=== PATIENT | male | born 1955 | race Hispanic/Latino ===

== ENCOUNTER 2016-07-25 04:04 | Emergency (ER) | payer OTHER ==
[~2016-07-25] VITALS: Ht 175.3 cm; Wt 88.0 kg
[~2016-07-25 04:04] MED LIST: AMOXIL500 MG PO; AUGMENTIN 875 M1 TAB PO; BACTRIM DS 8001 TAB PO; DOXAZOSIN MESYLA1 MG PO; FLEXERIL10 MG PO; LANTUS INS100 UNITS/ SC; NAPROXEN250 MG PO; NEURONTIN300 MG PO; PRINIVIL 5MG5 MG PO; RELION NOVOLIN10 ML SC; ZANTAC 150MG150 MG PO
--- NOTE | 2016-07-25 05:37 | ED INFLUENZA/URI COMPLAINT ---
See Addendum History of Present Illness General Chief Complaint: General Adult Stated Complaint: SHAKY AND CHILLS X 1 HOUR Source: patient Exam Limitations: no limitations Vital Signs & Intake/Output Vital Signs & Intake/Output Vital Signs Date Time Temp Pulse Resp B/P B/P Pulse O2 O2 Flow FiO2 Mean Ox Delivery Rate 07/25 0613 100.1 89 18 134/78 97 Room Air 07/25 0556 95 Room Air 07/25 0430 100.3 99 18 159/99 95 Room Air Allergies Coded Allergies: NO KNOWN ALLERGIES (12/08/14) Reconcile Medications Amoxicillin (Amoxil) 500 MG CAP 1 TAB PO TID WOUND INFECTION AMOXICILLIN/POTASSIUM CLAV (Augmentin 875-125 Tablet) 875 MG/125 MG TAB 1 TAB PO BID SINUSITIS CYCLOBENZAPRINE HCL (Flexeril) 10 MG TAB 1 TAB PO BID MUSCLE SPASM Avoid operating motor vehicle or heavy machinery Doxazosin Mesylate 1 MG TAB 1 TAB PO DAILY BP (Reported) Gabapentin (Neurontin) 300 MG CAP 1 CAP PO TID Neuropathic pain INSULIN NPH HUM/REG INSULIN HM (Relion Novolin 70-30 Vial) 10 ML MARGARITO 10 U SC BID DIABETES (Reported) Insulin-Lantus (Lantus Insulin) 100 UNITS/ML MADDY 15 U SC DAILY DIABETES ( Reported) Insulin-Lantus (Lantus Insulin) 100 UNITS/ML MADDY 10 U SC AT BEDTIME DIABETIES (Reported) Lisinopril (Prinivil) 5 MG TAB 1 TAB PO DAILY BP (Reported) Naproxen 250 MG TAB 1 TAB PO BID PAIN MODERATE TO SEVERE Ranitidine (Zantac) 150 MG TAB 1 TAB PO DAILY GI (Reported) Sulfamethoxazole/Trimethopri (Bactrim Ds 800 MG-160 MG) 1 TAB TAB 1 TAB PO BID WOUND INFECTION Triage Nurses Notes Reviewed? yes HPI: Patient presents for evaluation of shaking chills that began abruptly about 1-1/ 2 hours ago. Patient states he has had diffuse muscle aches, nonproductive cough, headache and feeling hot on the inside and cold on the outside. He also states he is having significant shortness of breath. He denies ill contacts, recent travel, vomiting, diarrhea, dysuria or rashes. He states he had one prior episode similar to this many years ago in [place]. Symptoms are moderate to severe, more or less constant. Nothing seems to make him feel better. Past History Travel History Traveled to [place] past 21 day No Medical History Any Pertinent Medical History? see below for history Neurological: NONE EENT: NONE Cardiovascular: hypertension Respiratory: NONE Gastrointestinal: GERD Hepatic: NONE Renal: NONE Musculoskeletal: NONE Psychiatric: NONE Endocrine: diabetes Surgical History Surgical History: appendectomy Psychosocial History What is your primary language Chinese Family History Family History, If Any: FATHER FH: HTN (hypertension) MOTHER FH: CAD (coronary artery disease) FH: HTN (hypertension) Hx Contributory? No Review of Systems Review of Systems Constitutional: Reports: chills. EENTM: Reports: no symptoms. Respiratory: Reports: no symptoms. Cardiovascular: Reports: no symptoms. GI: Reports: no symptoms. Genitourinary: Reports: no symptoms. Musculoskeletal: Reports: see HPI. Skin: Reports: no symptoms. Neurological/Psychological: Reports: no symptoms. Hematologic/Endocrine: Reports: no symptoms. Immunologic/Allergic: Reports: no symptoms. All Other Systems: Reviewed and Negative Physical Exam Physical Exam Ears, Nose, Throat: SEE BELOW Comments: Gen.: Well-nourished, well-developed, no acute respiratory distress. Head: Normocephalic, atraumatic. Eyes: Normal inspection bilaterally Ears: Normal inspection bilaterally Nose: Normal inspection Throat/mouth : Moist mucosa Neck: Supple, full range of motion, no goiter Heart: Regular rate and rhythm, no murmurs rubs or gallops Lungs: Clear to auscultation bilaterally with normal air entry Chest: Nontender Back: Normal range of motion Abdomen: Soft, diffuse tenderness without rebound or guarding, nondistended, normal bowel sounds Extremities: Normal range of motion grossly, equal radial pulses, no cyanosis clubbing or edema, calves nontender Neurologic: Cranial nerves grossly intact, speech is clear Skin: warm and dry, no rashes Psychiatric: Calm, cooperative, no apparent delusions or hallucinations Core Measures Severe Sepsis Present: No Septic Shock Present: No Progress Differential Diagnosis: influenza, pneumonia, viral syndrome Plan of Care: Orders Procedure Date/time Status XRY-CHEST XRAY, PA AND LATERAL 07/25 533 Active URINALYSIS 07/25 533 Complete COMPREHENSIVE METABOLIC PANEL 07/25 533 Complete CBC WITHOUT DIFFERENTIAL 07/25 533 Complete RAPID VIRAL INFLUENZA A 07/25 0455 Complete Laboratory Tests 07/25/16 0553: Urine Color YEL, Urine Clarity CLEAR, Urine pH 6.0, Ur Specific [place] 1.025, Urine Protein TRACE H, Urine Ketones NEG, Urine Nitrite NEG, Urine Bilirubin NEG, Urine Urobilinogen 0.2, Ur Leukocyte Esterase NEG, Ur Microscopic SEDIMENT EXAMINED, Urine RBC 1-3, Ur Epithelial Cells RARE, Urine Bacteria FEW H, Urine Hemoglobin TRACE-INTACT H, Urine Glucose NEG 07/25/16 0520: Anion Gap 12, Estimated GFR 52 L, BUN/Creatinine Ratio 16.4, Glucose 104 H, Calcium 8.7, Total Bilirubin 1.0, AST 60 H, ALT 65, Alkaline Phosphatase 97, Total Protein 6.9, Albumin 3.7, Globulin 3.2, Albumin/Globulin Ratio 1.2, CBC w Diff NO MAN DIFF REQ, RBC 4.49 L, MCV 93.9, MCH 31.6 H, RDW 12.8, MPV 10.6 H, Gran % 74.4, Lymphocytes % 17.7 L, Monocytes % 5.8, Eosinophils % 1.7, Basophils % 0.4, Absolute Granulocytes 6.1, Absolute Lymphocytes 1.5, Absolute Monocytes 0.5, Absolute Eosinophils 0.1, Absolute Basophils 0, PUBS MCHC 33.6 Microbiology 07/25 0455 NASOPHARYN: Influenza Virus A & B Rapid Smear - COMP Initial ED EKG: none Comments: 07/25/2016 6:21:31 AM Ismael is feeling better and appears more comfortable. Departure Departure Disposition: HOME OR SELF CARE Condition: Stable Clinical Impression Primary Impression: Viral syndrome Referrals: NEHEMIAH RICHMOND MD (PCP/Family) Additional Instructions: Voltaren as needed for headache muscle aches or chills. Drink lots of fluids. Follow-up with your primary care doctor this week for reevaluation. Return if any concerns or sudden worsening. Thank you for choosing the [facility] Emergency Department for your care. It was a pleasure to serve you today. Jamshid Lauren M.D. [facility] Departure Forms: Customer Survey General Discharge Information Prescriptions: Current Visit Scripts Diclofenac Potassium 1 TAB PO TID PRN PAIN #30 TAB
[2016-07-25 05:44] LABS: ABSOLUTE BASOPHIL COUNT 0 /CUMM (0.0-0.2); ABSOLUTE EOSINOPHIL COUNT 0.1 /CUMM (0.0-0.7); ABSOLUTE GRANULOCYTE CT 6.1 /CUMM (1.4-6.5); ABSOLUTE LYMPH COUNT 1.5 /CUMM (1.2-3.4); ABSOLUTE MONOCYTE COUNT 0.5 /CUMM (0.10-0.60); BASOPHIL % 0.4 % (0.0-2.0); EOSINOPHIL % 1.7 % (0-5); GRANULOCYTE % 74.4 % (42.2-75.2); HEMATOCRIT 42.2 % (42-52); MEAN CORPUSCULAR HGB 31.6 PG (27.0-31.0); MEAN CORPUSCULAR HGB CONC 33.6 G/DL (33.0-37.0); MEAN CORPUSCULAR VOLUME 93.9 FL (80.0-94.0); MEAN PLATELET VOLUME 10.6 FL (7.4-10.4); PLATELET COUNT 148 /CUMM (130-400); RBC DISTRIBUTION WIDTH 12.8 % (11.5-14.5); RED BLOOD CELL CT 4.49 /CUMM (4.70-6.10); WHITE BLOOD CELL COUNT 8.2 /CUMM (4.8-10.8)
[2016-07-25 06:13] VITALS: BP 134/78
[2016-07-25] MEDS ORDERED: DICLOFENAC POTA50 M1 PO ×2 (06:23→06:49)
--- NOTE | 2016-07-25 06:33 | RADIOLOGY REPORT ---
EXAMINATION: XR CHEST CLINICAL INFORMATION: Chills. Dyspnea. Pain. COMPARISON: Chest radiograph 06/28/2015. TECHNIQUE: 2 views of the chest were obtained. FINDINGS: There are ill-defined opacities within the right lung. The left lung is well expanded. There is no pleural effusion or pneumothorax. The cardiac silhouette and upper media cells contours are normal. No acute osseous finding. IMPRESSION: There are ill-defined opacities within the right lung consistent with pneumonia.
[2016-07-25] MEDS ORDERED: ZITHROMAX250 M2 PO ×2 (06:36→06:49)
== END 2016-07-25 06:55 ==
LOC: ERH
PROVIDERS: Emergency Medicine
DX: B34.9 Viral infection, unspecified (principal)
CPT/HCPCS: 81001; 87804; 87804-59; 96361; 96374; J1885

== ENCOUNTER 2017-04-25 05:59 | Emergency (ER) | payer OTHER ==
[~2017-04-25] VITALS: Ht 175.3 cm; Wt 87.1 kg
[~2017-04-25 05:59] MED LIST changes: +DICLOFENAC POTA50 M1 PO; +ZITHROMAX250 M2 PO
--- NOTE | 2017-04-25 06:22 | ED INFLUENZA/URI COMPLAINT ---
History of Present Illness General Chief Complaint: Upper Respiratory Sx/Fever Stated Complaint: ? FLU COUGH,HERRERA,BODY ACHE PER PT Source: patient Exam Limitations: no limitations Vital Signs & Intake/Output Vital Signs & Intake/Output Vital Signs Date Time Temp Pulse Resp B/P B/P Pulse O2 O2 Flow FiO2 Mean Ox Delivery Rate 04/25 0700 97.0 75 20 149/94 97 Room Air Allergies Coded Allergies: NO KNOWN ALLERGIES (12/08/14) Triage Nurses Notes Reviewed? yes HPI: PATIENT REPORT SINCE SATURDAY HE HAS BEEN HAVING MYALGIAS, CHILLS, COUGH WITH WHITISH SPUTUM PRODUCTION. HIS SYMPTOMS HAVE INCREASED IN SEVERITY. HE REPORTS HE WORKS AT AN [employer] AND ALL HIS CO-WORKERS ARE SICK. HE HAS ALSO BEEN NAUSEATED AND VOMITED ONCE CLEAR LIQUID. HE USED TO SMOKE BUT QUIT > 5 YRS AGO. HE DENIES SOB, PALPITAIONS, CP, HISTORY OF LUNG DISEASE, URINARY OR BOWEL SYMPTOMS. (Bety RHODES,Denita) Reconcile Medications Amoxicillin (Amoxil) 500 MG CAP 1 TAB PO TID WOUND INFECTION AMOXICILLIN/POTASSIUM CLAV (Augmentin 875-125 Tablet) 875 MG/125 MG TAB 1 TAB PO BID SINUSITIS Azithromycin (Zithromax) 250 MG TABLET 1 DP PO AD COPD/BRONCHITIS 2 the first day followed by 1 for days 2-5 CYCLOBENZAPRINE HCL (Flexeril) 10 MG TAB 1 TAB PO BID MUSCLE SPASM Avoid operating motor vehicle or heavy machinery Diclofenac Potassium 50 MG TABLET 1 TAB PO TID PRN PAIN,fever Doxazosin Mesylate 1 MG TAB 1 TAB PO DAILY BP (Reported) Gabapentin (Neurontin) 300 MG CAP 1 CAP PO TID Neuropathic pain INSULIN NPH HUM/REG INSULIN HM (Relion Novolin 70-30 Vial) 10 ML MARGARITO 10 U SC BID DIABETES (Reported) Insulin-Lantus (Lantus Insulin) 100 UNITS/ML MADDY 15 U SC DAILY DIABETES ( Reported) Insulin-Lantus (Lantus Insulin) 100 UNITS/ML MADDY 10 U SC AT BEDTIME DIABETIES (Reported) Lisinopril (Prinivil) 5 MG TAB 1 TAB PO DAILY BP (Reported) Naproxen 250 MG TAB 1 TAB PO BID PAIN MODERATE TO SEVERE Oseltamivir Phosphate (Tamiflu) 75 MG CAPSULE 1 CAP PO BID INFLUENZA Ranitidine (Zantac) 150 MG TAB 1 TAB PO DAILY GI (Reported) Sulfamethoxazole/Trimethopri (Bactrim Ds 800 MG-160 MG) 1 TAB TAB 1 TAB PO BID WOUND INFECTION (Linda RHODES,Luc) Past History Travel History Traveled to [place] past 21 day No Medical History Any Pertinent Medical History? none Neurological: NONE EENT: NONE Cardiovascular: hypertension Respiratory: NONE Gastrointestinal: GERD Hepatic: NONE Renal: NONE Musculoskeletal: NONE Psychiatric: NONE Endocrine: diabetes Surgical History Surgical History: appendectomy Psychosocial History What is your primary language [place] Family History Family History, If Any: FATHER FH: HTN (hypertension) MOTHER FH: CAD (coronary artery disease) FH: HTN (hypertension) Hx Contributory? No (Hattie Albert MD) Review of Systems Review of Systems Constitutional: Reports: see HPI. (Hattie Albert MD) Physical Exam Physical Exam General Appearance: well developed/nourished, no apparent distress, alert, awake Head: atraumatic, normal appearance Eyes: Bilateral: normal appearance, PERRL, EOMI. Ears, Nose, Throat: normal ENT inspection Neck: SUPRACLAVILAR TENDERNESS WITHOUT LYMPHADENOPATHY Respiratory: normal breath sounds, lungs clear Cardiovascular: 2/6 SYSTOLIC MURMUR Gastrointestinal: normal bowel sounds, soft, non-tender Extremities: normal inspection, no edema Core Measures Sepsis Present: No Sepsis Focused Exam Completed? No (Hattie Albert MD) Progress Differential Diagnosis: influenza, pneumonia, pharyngitis, sinusitis Initial ED EKG: none (Hattie Albert MD) Plan of Care: Orders Procedure Date/time Status RAPID VIRAL INFLUENZA A 04/25 0611 Complete VIRAL CULTURE 04/25 06 Active Laboratory Tests 04/25/17 0611: Virus Culture Pending Microbiology 04/25 07 NASOPHARYN: Influenza Virus A & B Rapid Smear - COMP INFLUENZA TYPE B Hand-Off Endorsed To: Jamshid Lauren MD Endorsed Time: 712 Pending: other (FLU SWAB) (Jaye Sprague MD) Departure Departure Disposition: HOME OR SELF CARE Condition: Stable Clinical Impression Primary Impression: Influenza (Hattie Albert MD) Resident Co-Sign Statement Statement: ED Attending supervision documentation- [X] I saw and evaluated the patient. I have also reviewed all the pertinent lab results and diagnostic results. I agree with the findings and the plan of care as documented in the Resident's documentation. [X] I have reviewed the ED Record and agree with the Resident's documentation. [] Additions or exceptions (if any) to the Resident's note and plan are summarized below: [] (Celestine RHODES,Jaye) Departure Time of Disposition: 075 Additional Instructions: FOLLOW UP WITH YOUR PCP UPON DISCHARGE come back for worsening symptoms Departure Forms: Customer Survey General Discharge Information RELEASE- WORK Prescriptions: Current Visit Scripts Oseltamivir Phosphate (Tamiflu) 1 CAP PO BID #10 CAP (Linda RHODES,Luc)
[2017-04-25 07:00] VITALS: BP 149/94
--- NOTE | 2017-04-25 07:46 | Patient Discharge Instructions ---
Discharge Instructions General Discharge Information You were seen/treated for: Influenza Special Instructions: Please follow up with your primary care physician within 1-2 weeks of discharge. Take Tamiflu 75mg by mouth twice a day for five days. Come back to the ER for worsening symptoms Acute Coronary Syndrome Inclusion Criteria At DC or during hospital stay patient has or had the following: ACS DIAGNOSIS No Discharge Core Measures Meds if any: Prescribed or Continued at Discharge Meds if any: NOT Prescribed or Continued at Discharge Congestive Heart Failure Inclusion Criteria At DC or during hospital stay patient has or had the following: CHF DIAGNOSIS No Discharge Core Measures Meds if any: Prescribed or Continued at Discharge Meds if any: NOT Prescribed or Continued at Discharge Cerebrovascular accident Inclusion Criteria At DC or during hospital stay patient has or had the following: CVA/TIA Diagnosis No Discharge Core Measures Meds if any: Prescribed or Continued at Discharge Meds if any: NOT Prescribed or Continued at Discharge Venous thromboembolism Inclusion Criteria VTE Diagnosis No VTE Type NONE VTE Confirmed by (Test) NONE Discharge Core Measures - Per Current guidelines, there needs to be overlap - treatment for the first 5 days of Warfarin therapy. - If discharged on Warfarin prior to 5 days of - overlap therapy, the patient will need to be - assessed for post discharge needs including - *Post discharge parental anticoagulation - *Warfarin and/or parental anticoagulation education - *Follow up date to check INR post discharge At least 5 days overlap therapy as Inpatient No Meds if any: Prescribed or Continued at Discharge Note: Overlap Therapy is Warfarin and Anticoagulant Meds if any: NOT Prescribed or Continued at Discharge
[2017-04-25] MEDS ORDERED: TAMIFLU75 M1 PO (07:50)
== END 2017-04-25 08:03 ==
LOC: ERH 05:59
DX: J11.1 Influenza due to unidentified influenza virus with other respiratory manifestations (principal)
CPT/HCPCS: 87804; 87804-59

== ENCOUNTER 2017-12-23 18:08 | Emergency (ER) | payer SELFPAY ==
[~2017-12-23 18:08] MED LIST changes: +TAMIFLU75 M1 PO
[2017-12-23 20:15] LABS: ABSOLUTE BASOPHIL COUNT 0 /CUMM (0.0-0.2); ABSOLUTE EOSINOPHIL COUNT 0.1 /CUMM (0.0-0.7); ABSOLUTE GRANULOCYTE CT 6.1 /CUMM (1.4-6.5); ABSOLUTE MONOCYTE COUNT 1.1 /CUMM (0.10-0.60); BASOPHIL % 0.5 % (0.0-2.0); GRANULOCYTE % 65.3 % (42.2-75.2); HEMATOCRIT 41.4 % (42-52); MEAN CORPUSCULAR HGB 31.9 PG (27.0-31.0); MEAN CORPUSCULAR HGB CONC 33.3 G/DL (33.0-37.0); MEAN CORPUSCULAR VOLUME 95.5 FL (80.0-94.0); MEAN PLATELET VOLUME 10.3 FL (7.4-10.4); PLATELET COUNT 178 /CUMM (130-400); RBC DISTRIBUTION WIDTH 12.7 % (11.5-14.5); RED BLOOD CELL CT 4.33 /CUMM (4.70-6.10); WHITE BLOOD CELL COUNT 9.3 /CUMM (4.8-10.8)
--- NOTE | 2017-12-23 22:41 | ED GENERAL ADULT ---
History of Present Illness General Chief Complaint: General Adult Stated Complaint: MULTIPLE COMPLAINTS Source: patient, family, old records Exam Limitations: no limitations Vital Signs & Intake/Output Vital Signs & Intake/Output Vital Signs Date Time Temp Pulse Resp B/P B/P Pulse O2 O2 Flow FiO2 Mean Ox Delivery Rate 12/24 0216 98.2 77 20 145/87 98 Room Air 12/24 0108 98.8 75 20 156/82 96 Room Air 12/23 2259 98.7 94 20 176/100 97 Room Air 12/23 1827 99.0 86 20 191/119 96 ED Intake and Output 12/24 0000 12/23 1200 Intake Total 3000 Output Total Balance 3000 Intake, IV 3000 Patient 195 lb Weight Allergies Coded Allergies: NO KNOWN ALLERGIES (12/08/14) Reconcile Medications Amoxicillin (Amoxil) 500 MG CAP 1 TAB PO TID WOUND INFECTION AMOXICILLIN/POTASSIUM CLAV (Augmentin 875-125 Tablet) 875 MG/125 MG TAB 1 TAB PO BID SINUSITIS Azithromycin (Zithromax) 250 MG TABLET 1 DP PO AD COPD/BRONCHITIS 2 the first day followed by 1 for days 2-5 Ciprofloxacin HCl (Cipro) 250 MG TABLET 1 TAB PO BID URINE INFECTION CYCLOBENZAPRINE HCL (Flexeril) 10 MG TAB 1 TAB PO BID MUSCLE SPASM Avoid operating motor vehicle or heavy machinery Diclofenac Potassium 50 MG TABLET 1 TAB PO TID PRN PAIN,fever Doxazosin Mesylate 1 MG TAB 1 TAB PO DAILY BP (Reported) Gabapentin (Neurontin) 300 MG CAP 1 CAP PO TID Neuropathic pain INSULIN NPH HUM/REG INSULIN HM (Relion Novolin 70-30 Vial) 10 ML MARGARITO 10 U SC BID DIABETES (Reported) Insulin-Lantus (Lantus Insulin) 100 UNITS/ML MADDY 15 U SC DAILY DIABETES ( Reported) Insulin-Lantus (Lantus Insulin) 100 UNITS/ML MADDY 10 U SC AT BEDTIME DIABETIES (Reported) Lisinopril (Prinivil) 5 MG TAB 1 TAB PO DAILY BP (Reported) Naproxen 250 MG TAB 1 TAB PO BID PAIN MODERATE TO SEVERE Oseltamivir Phosphate (Tamiflu) 75 MG CAPSULE 1 CAP PO BID INFLUENZA Ranitidine (Zantac) 150 MG TAB 1 TAB PO DAILY GI (Reported) Sulfamethoxazole/Trimethopri (Bactrim Ds 800 MG-160 MG) 1 TAB TAB 1 TAB PO BID WOUND INFECTION Triage Note: PER PT NOT FEELING WELL X 1 WEEK, BACK PAIN URINE DARK DID NOT SEE PMD BUT HAD A FEVER THE OTHER DAY Triage Nurses Notes Reviewed? yes HPI: Patient presents to the emergency department with intermittent fevers, chills, myalgias, frequent urination and dysuria. The symptoms started last week but then got better over the weekend but then this morning they came back again. Patient did not take his fever at home. There is no nausea or vomiting. Patient is a diabetic cookies been continuing to take his medications. Patient denies any chest pain or palpitations. There is no shortness of breath. There is no coughing. There is no headache. There is no neck pain. There is no blurry vision. Past History Travel History Traveled to [place] past 21 day No Medical History Any Pertinent Medical History? 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 No Review of Systems Review of Systems Constitutional: Reports: see HPI, chills, fever. EENTM: Reports: no symptoms. Respiratory: Reports: no symptoms. Cardiovascular: Reports: no symptoms. GI: Reports: no symptoms. Genitourinary: Reports: see HPI, dysuria, frequency. Musculoskeletal: Reports: see HPI. Skin: Reports: no symptoms. Neurological/Psychological: Reports: no symptoms. Hematologic/Endocrine: Reports: no symptoms. Immunologic/Allergic: Reports: no symptoms. All Other Systems: Reviewed and Negative Physical Exam Physical Exam General Appearance: well developed/nourished, alert, awake, anxious Head: atraumatic, normal appearance Eyes: Bilateral: PERRL, EOMI. Ears, Nose, Throat: hearing grossly normal, dRY MUCOUS MEMBRANES Neck: normal inspection, supple, full range of motion Respiratory: normal breath sounds, chest non-tender, no respiratory distress, lungs clear Cardiovascular: regular rate/rhythm, normal peripheral pulses Gastrointestinal: normal bowel sounds, soft, non-tender, no organomegaly Back: normal inspection, normal range of motion, NO cva TENDERNESS Extremities: normal inspection, normal capillary refill, normal range of motion, no edema Neurologic/Psych: no motor/sensory deficits, awake, alert, oriented x 3, normal gait, normal mood/affect Skin: intact, normal color, warm/dry Lymphatic: no anterior cervical mily Core Measures ACS in differential dx? No CVA/TIA Diagnosis: No Sepsis Present: No Sepsis Focused Exam Completed? No Progress Differential Diagnoses I considered the following diagnoses in my evaluation of the patient: [UTI, sepsis, electrolyte abnormality, DKA, hyperglycemia] Plan of Care: Orders Procedure Date/time Status Add-on Test (ER Only) 12/23 2240 Active CULTURE,URINE 12/23 1825 Active URINALYSIS 12/23 1825 Complete LACTIC ACID 12/23 1825 Complete COMPREHENSIVE METABOLIC PANEL 12/23 1825 Complete CBC WITHOUT DIFFERENTIAL 12/23 1825 Complete Laboratory Tests 12/23/172125: Lactic Acid Cancelled 12/23/17 1924: Anion Gap 11, Estimated GFR 39 L, BUN/Creatinine Ratio 16.1, Glucose 519 *H, Lactic Acid 1.7, Calcium 9.1, Total Bilirubin 1.2, AST 91 H, ALT 62, Alkaline Phosphatase 203 H, Total Protein 7.0, Albumin 3.6, Globulin 3.4, Albumin/ Globulin Ratio 1.1, CBC w Diff NO MAN DIFF REQ, RBC 4.33 L, MCV 95.5 H, MCH 31.9 H, MCHC 33.3, RDW 12.7, MPV 10.3, Gran % 65.3, Lymphocytes % 21.7, Monocytes % 11.5 H, Eosinophils % 1.0, Basophils % 0.5, Absolute Granulocytes 6.1, Absolute Lymphocytes 2.0, Absolute Monocytes 1.1 H, Absolute Eosinophils 0.1, Absolute Basophils 0 12/23/17 1833: Urine Color YEL, Urine Clarity HAZY H, Urine pH 6.5, Ur Specific [place] 1.010, Urine Protein NEG, Urine Ketones NEG, Urine Nitrite NEG, Urine Bilirubin NEG, Urine Urobilinogen 4.0 H, Ur Leukocyte Esterase SMALL H, Ur Microscopic SEDIMENT EXAMINED, Urine RBC 50-75 H, Urine WBC > 75 H, Ur Epithelial Cells TRANS H, Urine Hemoglobin LARGE H, Urine Glucose >=1000 H Microbiology 12/23 1826 URINE ROUT: Urine Culture - RECD Initial ED EKG: none Departure Departure Disposition: HOME OR SELF CARE Condition: Stable Clinical Impression Primary Impression: UTI (urinary tract infection) Secondary Impressions: Hyperglycemia Referrals: Eriberto Hoang MD (PCP/Family) Additional Instructions: Drink plenty of fluids. Take antibiotics as prescribed. Return if symptoms worsen or for any concerns. Departure Forms: Customer Survey General Discharge Information Prescriptions: Current Visit Scripts Ciprofloxacin HCl (Cipro) 1 TAB PO BID #14 TAB Critical Care Note Critical Care Note Critical Care Time: non-applicable Prescriptions: Current Visit Scripts Ciprofloxacin HCl (Cipro) 1 TAB PO BID #14 TAB
[2017-12-24] MEDS ORDERED: CIPRO250 M1 PO (00:28)
[2017-12-24 02:16] VITALS: BP 145/87
== END 2017-12-24 02:16 ==
LOC: ERH 18:08
PROVIDERS: Physician Assistant Medical
DX: N39.0 Urinary tract infection, site not specified (principal); E11.65 Type 2 diabetes mellitus with hyperglycemia; I10 Essential (primary) hypertension; R01.1 Cardiac murmur, unspecified; K21.9 Gastro-esophageal reflux disease without esophagitis; Z79.84 Long term (current) use of oral hypoglycemic drugs; Z87.891 Personal history of nicotine dependence
CPT/HCPCS: 81001; 87086; 96361; 96372; 96374; J0696

== ENCOUNTER 2017-12-27 21:17 | Inpatient (IN) | payer OTHER ==
[~2017-12-27] VITALS: Ht 175.3 cm; Wt 83.1 kg
[~2017-12-27 21:17] MED LIST changes: +CIPRO250 M1 PO; +DOXAZOSIN MESYLA1 M1; -DOXAZOSIN MESYLA1 MG PO; -PRINIVIL 5MG5 MG PO; +PRINIVIL5 M1; +RELION NOV100 UNIT/1; -RELION NOVOLIN10 ML SC
--- NOTE | 2017-12-27 21:31 | ED GENERAL ADULT ---
History of Present Illness General Chief Complaint: General Adult Stated Complaint: SEEN LAST SATURDAY, FEVER, BODY ACHES PER PT Source: patient Exam Limitations: no limitations Vital Signs & Intake/Output Vital Signs & Intake/Output Vital Signs Date Time Temp Pulse Resp B/P B/P Pulse O2 O2 Flow FiO2 Mean Ox Delivery Rate 12/27 2140 Room Air 12/28 2123 101.2 12/28 2119 101.2 104 20 176/111 97 Room Air Allergies Coded Allergies: NO KNOWN ALLERGIES (12/08/14) Reconcile Medications Amoxicillin (Amoxil) 500 MG CAP 1 TAB PO TID WOUND INFECTION AMOXICILLIN/POTASSIUM CLAV (Augmentin 875-125 Tablet) 875 MG/125 MG TAB 1 TAB PO BID SINUSITIS Azithromycin (Zithromax) 250 MG TABLET 1 DP PO AD COPD/BRONCHITIS 2 the first day followed by 1 for days 2-5 Ciprofloxacin HCl (Cipro) 250 MG TABLET 1 TAB PO BID URINE INFECTION CYCLOBENZAPRINE HCL (Flexeril) 10 MG TAB 1 TAB PO BID MUSCLE SPASM Avoid operating motor vehicle or heavy machinery Diclofenac Potassium 50 MG TABLET 1 TAB PO TID PRN PAIN,fever Doxazosin Mesylate 1 MG TAB 1 TAB PO DAILY BP (Reported) Gabapentin (Neurontin) 300 MG CAP 1 CAP PO TID Neuropathic pain INSULIN NPH HUM/REG INSULIN HM (Relion Novolin 70-30 Vial) 10 ML MARGARITO 10 U SC BID DIABETES (Reported) Insulin-Lantus (Lantus Insulin) 100 UNITS/ML MADDY 15 U SC DAILY DIABETES ( Reported) Insulin-Lantus (Lantus Insulin) 100 UNITS/ML MADDY 10 U SC AT BEDTIME DIABETIES (Reported) Lisinopril (Prinivil) 5 MG TAB 1 TAB PO DAILY BP (Reported) Naproxen 250 MG TAB 1 TAB PO BID PAIN MODERATE TO SEVERE Oseltamivir Phosphate (Tamiflu) 75 MG CAPSULE 1 CAP PO BID INFLUENZA Ranitidine (Zantac) 150 MG TAB 1 TAB PO DAILY GI (Reported) Sulfamethoxazole/Trimethopri (Bactrim Ds 800 MG-160 MG) 1 TAB TAB 1 TAB PO BID WOUND INFECTION Triage Note: PT TO TRIAGE C/O FEVER, LOWER ABD PAIN AND BACK PAIN. PER PT SEEN HERE LAST SATURDAY, DX WITH UTI, R CIPRO AND NOT GETTING BETTER PER PT. TEMP IN TRIAGE 101.2, PT HAS NOT TAKEN ANY MEDICATION AT HOME. MEDICATED WITH TYLENOL IN TRIAGE. PT ALSO HYPERTENSIVE IN TRIAGE. Triage Nurses Notes Reviewed? yes Onset: Abrupt Duration: day(s): Timing: recent history No Modifying Factors: none HPI: 62-year-old male that was here for urinary tract infection and put on ciprofloxacin comes in with worsening symptoms of fatigue fever chills body aches. He complains of lower abdominal pain and shortness of breath. He denies any dysuria or increased frequency which is what he was having previously. he got better then worse. (Carlos Perez) Past History Travel History Traveled to [place] past 21 day No Medical History Any Pertinent Medical History? 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 No (Carlos Perez) Review of Systems Review of Systems Constitutional: Reports: see HPI. EENTM: Reports: no symptoms. Respiratory: Reports: see HPI. Cardiovascular: Reports: no symptoms. GI: Reports: see HPI. Genitourinary: Reports: see HPI. Musculoskeletal: Reports: no symptoms. Skin: Reports: no symptoms. Neurological/Psychological: Reports: no symptoms. Hematologic/Endocrine: Reports: no symptoms. Immunologic/Allergic: Reports: no symptoms. All Other Systems: Reviewed and Negative (Carlos Perez) Physical Exam Physical Exam General Appearance: well developed/nourished, alert, awake, mild distress Head: atraumatic, normal appearance Eyes: Bilateral: normal appearance. Ears, Nose, Throat: normal ENT inspection, hearing grossly normal Neck: normal inspection Respiratory: normal breath sounds, no respiratory distress Cardiovascular: regular rate/rhythm, tachycardia Gastrointestinal: soft, non-tender Back: normal inspection Neurologic/Psych: awake, alert Skin: intact, normal color Core Measures ACS in differential dx? No CVA/TIA Diagnosis: No Sepsis Present: No Sepsis Focused Exam Completed? No (Carlos Perez) Progress Differential Diagnoses I considered the following diagnoses in my evaluation of the patient: UTI, sepsis, prostatitis, pneumonia, Plan of Care: Orders Procedure Date/time Status Consistent Carbohydrate 1 12/28 B Active LACTIC ACID 12/284 Active Lab Add-on Test 12/28 2235 Active URINE OSMOLALITY 12/28 2235 Active URINE LYTES, SPOT 12/28 2235 Active URINALYSIS 12/28 2235 Active Patient Data 12/27 2233 Active Misc Message 12/27 2229 Active ED Holding Orders 12/27 2229 Active Admit to inpatient 12/27 2229 Active Vital Signs 12/27 2229 Active Code Status 12/27 2229 Active SERUM OSMOLALITY 12/28 2135 Active BLOOD CULTURE 12/28 2123 Active LACTIC ACID 12/28 2123 Active COMPREHENSIVE METABOLIC PANEL 12/28 2123 Active CBC WITHOUT DIFFERENTIAL 12/28 2123 Complete EKG 12/28 2123 Active Current Medications Sig/Tony Start time Last Medication Dose Stop Time Status Admin Insulin Human Regular 6 UNITS ONCE ONE 12/27 2229 UNVr (NovoLIN R) 12/27 2230 Acetaminophen 1,000 MG ONCE ONE 12/27 2129 CAN (Ofirmev) 12/28 2143 N/A 1 UNIT (No Carrier) Laboratory Tests 12/27/172135: Anion Gap 10, Estimated GFR 56 L, BUN/Creatinine Ratio 16.2, Glucose 477 H, Serum Osmolality Pending, Lactic Acid 1.3, Calcium 8.4, Total Bilirubin 1.6 H, AST 69 H, ALT 62, Alkaline Phosphatase 198 H, Total Protein 6.6, Albumin 3.3 L, Globulin 3.3, Albumin/Globulin Ratio 1.0 L, CBC w Diff NO MAN DIFF REQ, RBC 3.80 L, MCV 93.9, MCH 31.9 H, MCHC 34.0, RDW 12.7, MPV 10.2, Gran % 80.9 H, Lymphocytes % 12.1 L, Monocytes % 6.3, Eosinophils % 0.5, Basophils % 0.2, Absolute Granulocytes 9.0 H, Absolute Lymphocytes 1.3, Absolute Monocytes 0.7 H, Absolute Eosinophils 0.1, Absolute Basophils 0 Microbiology 12/28 2219 BLOOD: Blood Culture - RECD 12/28 2135 BLOOD: Blood Culture - RECD Diagnostic Imaging: Viewed by Me: Radiology Read. Discussed w/RAD: Radiology Read. Radiology Impression: PATIENT: MATIAS MEDINA PRESENT AGE: 62 PATIENT ACCOUNT NO: [id number] : 57 LOCATION: [facility] ORDERING PHYSICIAN: Carlos HWANG SERVICE DATE: 12/27/17 EXAM TYPE : RAD - XRY-CHEST XRAY, TWO VIEWS EXAMINATION: XR CHEST CLINICAL INFORMATION: Shortness of breath. COMPARISON: Chest x-ray 07/25/2016 TECHNIQUE: 2 views of the chest were obtained. FINDINGS: No significant abnormality is noted involving the heart, lungs, mediastinum, bony thorax or soft tissues. IMPRESSION: Unremarkable examination. DICTATED BY: Jeronimo Alvarez MD DATE/TIME DICTATED:2203 BRANCH OFFICE MANAGER:SULMA DATE/TIME TRANSCRIBED:12/27/172203 CONFIDENTIAL, DO NOT COPY WITHOUT APPROPRIATE AUTHORIZATION. <Electronically signed in Other Vendor System> SIGNED BY: Jeronimo Alvarez MD 12/27/172207 Initial ED EKG: normal sinus rhythm, rate (98) (Carlos Perez) Differential Diagnoses I considered the following diagnoses in my evaluation of the patient: (Xin RHODES,Jamshid Benavidez) ED Sepsis Exam Date of Focused Sepsis Exam: 12/27/17 Time of Focused Sepsis Exam: 2237 Sepsis Cardiac Exam: Regular Rate/Rhythm Sepsis Resp Exam: CTA Sepsis Cap Refill Exam: <2 Sec Sepsis Peripheral Pulse Exam: Normal Sepsis Peripheral Pulse Location: Radial Sepsis Skin Color Exam: Normal for Ethnicity Skin Temp/Moisture Exam: Warm/Dry (Xin RHODES,Jamshid Benavidez) Departure Departure Disposition: STILL A PATIENT Condition: Stable Clinical Impression Primary Impression: Sepsis Secondary Impressions: Hyperglycemia, Hyponatremia Referrals: Eriberto Hoang MD (PCP/Family) Departure Forms: Customer Survey General Discharge Information Admission Note Spoke With: Ulises Silva MD Documentation of Exam: Documentation of any treatments & extenuating circumstances including Concerns Regarding Discharge (functional status, medication knowledge or non-compliance, living conditions, etc.) that warrant an admission rather than observation: Patient failed outpatient treatment . with oral antibiotics Patient will require IV antibiotics. IV fluids. Glucose management. (Carlos Perez) PA/METALLOGRAPHY TEACHER Co-Sign Statement Statement: ED Attending supervision documentation- [X] I saw and evaluated the patient. I have also reviewed all the pertinent lab results and diagnostic results. I agree with the findings and the plan of care as documented in the PA's/METALLOGRAPHY TEACHER's documentation. [] I have reviewed the ED Record and agree with the PA's/METALLOGRAPHY TEACHER's documentation. [] Additions or exceptions (if any) to the PAs/METALLOGRAPHY TEACHER's note and plan are summarized below: [] (Xin RHODES,Jamshid Benavidez) Critical Care Note Critical Care Note Critical Care Time: non-applicable (Carlos Perez)
--- NOTE | 2017-12-27 22:08 | RADIOLOGY REPORT ---
EXAMINATION: XR CHEST CLINICAL INFORMATION: Shortness of breath. COMPARISON: Chest x-ray 07/25/2016 TECHNIQUE: 2 views of the chest were obtained. FINDINGS: No significant abnormality is noted involving the heart, lungs, mediastinum, bony thorax or soft tissues. IMPRESSION: Unremarkable examination.
[2017-12-27 22:16] LABS: ABSOLUTE BASOPHIL COUNT 0 /CUMM (0.0-0.2); ABSOLUTE EOSINOPHIL COUNT 0.1 /CUMM (0.0-0.7); ABSOLUTE LYMPH COUNT 1.3 /CUMM (1.2-3.4); ABSOLUTE MONOCYTE COUNT 0.7 /CUMM (0.10-0.60); BASOPHIL % 0.2 % (0.0-2.0); EOSINOPHIL % 0.5 % (0-5); GRANULOCYTE % 80.9 % (42.2-75.2); MEAN CORPUSCULAR HGB 31.9 PG (27.0-31.0); MEAN CORPUSCULAR VOLUME 93.9 FL (80.0-94.0); MEAN PLATELET VOLUME 10.2 FL (7.4-10.4); PLATELET COUNT 183 /CUMM (130-400); RBC DISTRIBUTION WIDTH 12.7 % (11.5-14.5); WHITE BLOOD CELL COUNT 11.1 /CUMM (4.8-10.8)
[2017-12-27 22:20] LABS: HEMATOCRIT 35.7 % (42-52)
--- NOTE | 2017-12-27 22:36 | History & Physical ---
RocYancy 12/27/174: General Information and HPI MD Statement: I have seen and personally examined MATIAS MEDINA and documented this H& P. The patient is a 62 year old M who presented with a patient stated chief complaint of [sepsis]. Source of Information: patient, old records Exam Limitations: no limitations History of Present Illness: Mr. Kilgore is a 62yo M w/ PMH of HTN, GERD, T2DM, ?HCV presented for UTI w/ failed outpatient tx of Ciprofloxacin since 12/23/2017, w/ worsening fatigue/ fever/chills/body aches, along w/ lower ab pain and SOB, however denying dysuria /frequency that he was complaining in previous ER visit. He went to work as usual for 12/24- without any symptoms and the after prior this visit he developed sudden onset of fever/chills and subsequently came to ER for further eval. During our clinical interaction, patient denied recent travel/sick contacts, lightheadedness/diaphoresis/night sweat/weight change/cough/SOB/Chest Pain/ Palpitation/Abdominal pain/CVA tenderness/bowel movement abnormality, or other skin/musculoskeletal/neurological/mood disorders, or dietary/appetite change. 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 Exam & Diagnostic Data Last 24 Hrs of Vital Signs/I&O Vital Signs Date Time Temp Pulse Resp B/P B/P Pulse O2 O2 Flow FiO2 Mean Ox Delivery Rate 12/27 2140 Room Air 12/28 2123 101.2 12/28 2119 101.2 104 20 176/111 97 Room Air Physical Exam General Appearance Alert, Oriented X3, Cooperative, Mild Distress Skin No Rashes, No Breakdown, No Significant Lesion Skin Temp/Moisture Exam: Warm/Dry Sepsis Skin Exam (color): Normal for Ethnicity HEENT Atraumatic, PERRLA, EOMI Neck Supple, No JVD Cardiovascular Regular Rate Lungs Clear to Auscultation, Normal Air Movement Abdomen Normal Bowel Sounds, Soft, No Tenderness Neurological Normal Gait, Normal Speech, Strength at 5/5 X4 Ext, Sensation Intact Extremities No Clubbing, No Cyanosis, No Edema, Normal Pulses Last 24 Hrs of Labs/Parish: Laboratory Tests 12/27/172135: Anion Gap 10, Estimated GFR 56 L, BUN/Creatinine Ratio 16.2, Glucose 477 H, Hemoglobin A1c Pending, Serum Osmolality 292, Lactic Acid 1.3, Calcium 8.4, Total Bilirubin 1.6 H, AST 69 H, ALT 62, Alkaline Phosphatase 198 H, Total Protein 6.6, Albumin 3.3 L, Globulin 3.3, Albumin/Globulin Ratio 1.0 L, CBC w Diff NO MAN DIFF REQ, RBC 3.80 L, MCV 93.9, MCH 31.9 H, MCHC 34.0, RDW 12.7, MPV 10.2, Gran % 80.9 H, Lymphocytes % 12.1 L, Monocytes % 6.3, Eosinophils % 0.5, Basophils % 0.2, Absolute Granulocytes 9.0 H, Absolute Lymphocytes 1.3, Absolute Monocytes 0.7 H, Absolute Eosinophils 0.1, Absolute Basophils 0 Microbiology 12/27 2244 URINE ROUT: Urine Culture - ORD 12/28 2219 BLOOD: Blood Culture - RECD 12/28 2135 BLOOD: Blood Culture - RECD Assessment/Plan Assessment: On admission, Vitals: Tmax 101.2, HR 104, RR 20, BP 176/111, 97 RA -CBC: Leukocytosis 11.1, H/H 12.1/35.7, -CMP: HypoNa 125, Cr 1.3 at baseline, AST 69, Alkphos 198 -UA/Microbiology: Pending, previous UCx 12/23/2017 growing E.coli -CXR: Unremarkable -EKG: NSR w/o significant ST-T abnormalities, unchanged from previous. -Last Echo: None in our system -Interventions in ER: NS bolus x 3, Novolin 6U x 1, tylenol, Ceftriaxone x 1 Problem list/Assessment/Hospital Course: #Sepsis (Fever, leukocytosis, tachycardia, source of infection) 2/2 urological origin #UTI, complicated w/ possible pyelonephritis #Hypovolemic Hyponatremia #Hyperglycemia w/ underlying DM, likely due to infection #Transminitis 2/2 ??HCV #PMH of HTN, GERD, T2DM, ?HCV - Admit to general medicine - Vitals per protocol, monitor I&O per protocol. - Novolog 70/30 25U BID/AccuChek, holding oral hypoglycemics - Continuous IVF NS @125cc/hr for hyponatremia - start ceftriaxone daily for UTI and taper per culture. - Continue all home meds - Pending endo consult for T2DM - Pending cultures including blood/urine. - Pain per pathway DVT prophylaxis Pharm PPX + ALPS Diabetic CC3 IV Access: Peripheral IV Full Code Dispo: HSC likely As Ranked By This Provider Problem List: 1. Sepsis 2. Hyponatremia 3. UTI (urinary tract infection) 4. Hyperglycemia Core Measures/Misc (12/23) Acute Coronary Syndrome ACS Diagnosis: No Congestive Heart Failure Congestive Heart Failure Diagnosis No Cerebrovascular Accident CVA/TIA Diagnosis: No VTE (View Protocol) VTE Risk Factors Age>40 No Mechanical VTE Prophylaxis d/t N/A MechProphylax Ordered No VTE Pharm Prophylaxis d/t NA PharmProphylax ordered Sepsis (View protocol) Sepsis Present: Yes If YES complete Sepsis Event Note If YES complete Sepsis Event Note TylermaximoamelietheresaUlises 12/27/17 3238: General Information and HPI Allergies/Medications Home Med list Doxazosin Mesylate 1 MG TAB 1 TAB PO DAILY BP (Reported) INSULIN NPH HUM/REG INSULIN HM (Relion Novolin 70-30 Vial) 10 ML MARGARITO 10 U SC BID DIABETES (Reported) Insulin-Lantus (Lantus Insulin) 100 UNITS/ML MADDY 15 U SC DAILY DIABETES ( Reported) Insulin-Lantus (Lantus Insulin) 100 UNITS/ML MADDY 10 U SC AT BEDTIME DIABETIES (Reported) Lisinopril (Prinivil) 5 MG TAB 1 TAB PO DAILY BP (Reported) Tadalafil (Cialis) 5 MG TABLET 1 TAB PO DAILY PRN ED (Reported) Core Measures/Misc (12/23) Sepsis (View protocol) If YES complete Sepsis Event Note If YES complete Sepsis Event Note Attending MD Review Statement Attending Statement Attending MD Statement: examined this patient, discuss w/resident/PA/WOOL SAMPLER, agreed w/resident/PA/WOOL SAMPLER, discussed with family, reviewed images, amended to note Attending Assessment/Plan: Addendum by . Patient was seen and examined at bedside today (12/27/17) at 10:40 Pm. Reviewed the history physical done by the resident. Reviewed the past medical family, family, social history. ROS: 10 point system reviewed and negative except as described above. Initial reflux: Patient presented with urinary symptoms 4 days ago. Was given Cipro. He has been taking that for 4 days. His urinary hesitancy, burning has improved but guarded having chills and shivering this afternoon. So he decided to come back to the ER. Patient had some sharp suprapubic pain today. Had a fever of 101.2, Patient is diabetes but ran out of insurance so he was not taking any insulin recently. Patient admits taking blood pressure medication. Exam delete that Exam: Not, oriented. Abdomen no suprapubic tenderness. Lungs and cardiac exam-has a systolic murmur prominent in the apical area. Lungs are clear. No leg edema. See the resident note for full exam. Labs, prior records reviewed. Assessment and plan: #Sepsis secondary to E. coli UTI-failed outpatient treatment. Start the patient on ceftriaxone. Follow the blood cultures. #Diabetes type 2-uncontrolled due to noncompliance with the medication. Patient says he ran out of insurance. Patient is on Lantus twice daily at home in the past but later changed to ?Novolog bid with meals. pt can get 70/30 bid until he gets insurance, continue with the sliding scale. Adjust insulin regimen based on the sugars. #Hyponatremia, likely hypovolemic given diuresis from uncontrolled sugars. Patient is receiving IV fluids in the ER. We will continue with normal saline at 100 mL/h. Get urine osmolarity, serum osmolarity, urine sodium. #Abnormal LFTs due to unknown HCV infection. Patient never got treated for this. Advised to follow-up with GI as an outpatient. #CKD stage II-creatinine is better than before monitor. #GERD Reviewed with the resident. Agree with the rest of the plan as per resident's note. Dr.Ravinder Parker MD. Hospitalist. Pager: [phone], cell: [phone]. #CKD stage II-creatinine is better than before monitor. #GERD Reviewed with the resident. Agree with the rest of the plan as per resident's note. Dr.Ravinder Parker MD. Hospitalist. Pager: [phone], cell: [phone].
--- NOTE | 2017-12-27 22:47 | Sepsis Event Note ---
Sepsis Event Note Severe Sepsis Severe Sepsis Present: No Septic Shock Septic Shock Present: No Event Note Event Note: On admission, Vitals: Tmax 101.2, HR 104, RR 20, BP 176/111, 97 RA -CBC: Leukocytosis 11.1, H/H 12.1/35.7, -CMP: HypoNa 125, Cr 1.3 at baseline, AST 69, Alkphos 198 -UA/Microbiology: Pending, previous UCx 12/23/2017 growing E.coli -Interventions in ER: NS bolus x 3, Novolin 6U x 1, tylenol, Ceftriaxone x 1 Problem list/Assessment/Hospital Course: #Sepsis (Fever, leukocytosis, tachycardia, source of infection) 2/2 urological origin #UTI, complicated w/ possible pyelonephritis #Hypovolemic Hyponatremia #Hyperglycemia w/ underlying DM, likely due to infection #PMH of HTN, GERD, T2DM - He receive NS bolus x 3 in ER. rest of A/P per HPI Sepsis Focused Exam Sepsis Cardiac Exam: Tachycardia Sepsis Resp Exam: CTA Sepsis Cap Refill Exam: <2 Sec Sepsis Peripheral Pulse Exam: Normal Sepsis Peripheral Pulse Location: Dorsalis Pedis Sepsis Skin Exam (color): Normal for Ethnicity Skin Temp/Moisture Exam: Warm/Dry
[2017-12-28 00:03] VITALS: BP 164/94
[2017-12-28] MEDS ORDERED: CIALIS5 M1 PO (01:51)
[2017-12-28 06:38] VITALS: BP 120/68
--- NOTE | 2017-12-28 07:02 | PN- Housestaff ---
See Addendum Subjective Follow-up For: #Sepsis (Fever, leukocytosis, tachycardia, source of infection) 2/2 urological origin #UTI, complicated w/ possible pyelonephritis #Hypovolemic Hyponatremia #Hyperglycemia w/ underlying DM, likely due to infection #Transminitis 2/2 ??HCV #PMH of HTN, GERD, T2DM, ?HCV Subjective: No overnight event. Patient fever resolved overnight. No specific complaint. Review of Systems Constitutional: Reports: see HPI. Objective Last 24 Hrs of Vital Signs/I&O Vital Signs Date Time Temp Pulse Resp B/P B/P Pulse O2 O2 Flow FiO2 Mean Ox Delivery Rate 12/28 06 98.1 63 20 120/68 98 Room Air 12/28 0003 98.6 85 20 164/94 96 Room Air 12/27 2336 99.5 86 18 180/87 96 Room Air 12/27 2140 Room Air 12/28 2123 101.2 12/28 2119 101.2 104 20 176/111 97 Room Air Intake & Output 12/28 0800 12/28 0000 12/27 1600 Intake Total 450 0 Output Total 1500 Balance -1050 0 Intake, IV 450 Intake, Oral 0 Output, Urine 1500 Patient 83.121 kg 83.121 kg Weight Weight Bed scale Bed scale Measurement Method Physical Exam General Appearance: Alert, Oriented X3, Cooperative, No Acute Distress Cardiovascular: Regular Rate Lungs: Clear to Auscultation, Normal Air Movement Abdomen: Normal Bowel Sounds, Soft, No Tenderness Extremities: No Cyanosis, No Edema, Normal Pulses Current Medications: Current Medications Sig/Tony Start time Last Medication Dose Route Stop Time Status Admin Acetaminophen 650 MG Q6P PRN 12/27 2299 AC PO Acetaminophen 1,000 MG Q6P PRN 12/27 2299 AC IV Acetaminophen 975 MG ONCE ONE 12/27 2129 DC 12/27 PO 12/27 Acetaminophen 1,000 MG ONCE ONE 12/27 2129 CAN N/A 1 UNIT IV 12/28 2143 Ceftriaxone Sodium 1,000 MG 2100 12/28 2099 AC Sodium Chloride 100 ML IV Ceftriaxone Sodium 0 .STK-MED ONE 12/27 2224 DC .ROUTE Ceftriaxone Sodium 1,000 MG ONCE ONE 12/27 2129 DC 12/27 IV 12/27 Doxazosin Mesylate 1 MG DAILY 12/28 899 AC PO Heparin Sodium 5,000 UNIT Q8 12/28 0600 AC 12/28 (Porcine) SC 0534 Influenza Virus 0.5 ML ONCE ONE 12/28 0015 DC Vaccine IM 12/28 0016 Insulin Aspart 0 TIDAC 12/28 0800 CAN SC Insulin Aspart 25 UNITS BID 12/28 0045 CAN SC Insulin Aspart 0 TIDAC 12/27 2300 DC SC Insulin Aspart Prota 25 UNIT BID 12/28 0045 AC 12/28 70%/Aspart 30% [place] 0137 Insulin Human Regular 6 UNITS ONCE ONE 12/27 2230 DC 12/27 SC 12/27 223 2302 Lisinopril 5 MG DAILY 12/28 09 AC PO Sodium Chloride 1,000 ML Q10H 12/28 0115 AC 12/28 IV 12/28 2114 0137 Sodium Chloride 1,000 ML BOLUS ONE 12/27 2129 DC 12/27 IV 12/27 2228 2149 Sodium Chloride 1,000 ML BOLUS ONE 12/27 2129 DC 12/27 IV 12/27 2228 2253 Sodium Chloride 1,000 ML BOLUS ONE 12/27 2129 DC IV 12/27 2228 Last 24 Hrs of Lab/Parish Results Last 24 Hrs of Labs/Mics: Laboratory Tests 12/28/17 0647: CBC w Diff Pending, WBC Pending, RBC Pending, Hgb Pending, Hct Pending, MCV Pending, MCH Pending, MCHC Pending, RDW Pending, Plt Count Pending, MPV Pending 12/28/17 0210: Lactic Acid 1.2 12/28/17 0200: Urine Color STRAW, Urine Clarity CLEAR, Urine pH 6.5, Ur Specific [place] <= 1.005, Urine Protein NEG, Urine Ketones NEG, Urine Nitrite NEG, Urine Bilirubin NEG, Urine Urobilinogen 0.2, Ur Leukocyte Esterase NEG, Ur Microscopic SEDIMENT EXAMINED, Urine RBC RARE, Urine WBC RARE, Ur Epithelial Cells RARE, Urine Hemoglobin TRACE-INTACT H, Urine Glucose >=1000 H 12/28/17 0200: Urine Osmolality 243 L, Ur Random Creatinine 17.5, Ur Random Sodium 42, Ur Random Potassium 7.6, Fraction Sodium Excret 2.5 H 12/27/17 2136: Anion Gap 10, Estimated GFR 56 L, BUN/Creatinine Ratio 16.2, Glucose 477 H, Hemoglobin A1c Pending, Serum Osmolality 292, Lactic Acid 1.3, Calcium 8.4, Total Bilirubin 1.6 H, AST 69 H, ALT 62, Alkaline Phosphatase 198 H, Total Protein 6.6, Albumin 3.3 L, Globulin 3.3, Albumin/Globulin Ratio 1.0 L, CBC w Diff NO MAN DIFF REQ, RBC 3.80 L, MCV 93.9, MCH 31.9 H, MCHC 34.0, RDW 12.7, MPV 10.2, Gran % 80.9 H, Lymphocytes % 12.1 L, Monocytes % 6.3, Eosinophils % 0.5, Basophils % 0.2, Absolute Granulocytes 9.0 H, Absolute Lymphocytes 1.3, Absolute Monocytes 0.7 H, Absolute Eosinophils 0.1, Absolute Basophils 0 Microbiology 12/28 199 URINE ROUT: Urine Culture - RECD 12/28 2219 BLOOD: Blood Culture - RECD 12/28 2135 BLOOD: Blood Culture - RECD Assessment/Plan Assessment: Problem list/Assessment/Hospital Course: #Sepsis (Fever, leukocytosis, tachycardia, source of infection) 2/2 urological origin #UTI, complicated w/ possible pyelonephritis #Hypovolemic Hyponatremia corrected to 128 #Hyperglycemia w/ underlying DM, likely due to infection #Transminitis 2/2 ??HCV #PMH of HTN, GERD, T2DM, ?HCV - Novolog 70/30 25U BID/AccuChek, holding oral hypoglycemics - Continuous IVF NS @125cc/hr for hyponatremia - Continue ceftriaxone daily for UTI and taper per culture. - Continue all home meds - Pending endo consult for T2DM - Pending cultures including blood/urine. - Pain per pathway DVT prophylaxis Heparin SC + ALPS Diabetic CC3 IV Access: Peripheral IV Full Code Dispo: [facility] likely Problem List: 1. Hyponatremia 2. Hyperglycemia 3. UTI (urinary tract infection) Pain Ratin Pain Location: NA Pain Goal: Remain pain free Pain Plan: see AP Tomorrow's Labs & Rationales: CBC
[2017-12-28 08:46] LABS: ABSOLUTE BASOPHIL COUNT 0.1 /CUMM (0.0-0.2); ABSOLUTE EOSINOPHIL COUNT 0.1 /CUMM (0.0-0.7); ABSOLUTE LYMPH COUNT 2.8 /CUMM (1.2-3.4); ABSOLUTE MONOCYTE COUNT 0.9 /CUMM (0.10-0.60); BASOPHIL % 0.5 % (0.0-2.0); EOSINOPHIL % 1.2 % (0-5); GRANULOCYTE % 67.5 % (42.2-75.2); HEMATOCRIT 34.3 % (42-52); MEAN PLATELET VOLUME 10.8 FL (7.4-10.4); PLATELET COUNT 182 /CUMM (130-400); RBC DISTRIBUTION WIDTH 12.7 % (11.5-14.5); RED BLOOD CELL CT 3.64 /CUMM (4.70-6.10); WHITE BLOOD CELL COUNT 11.9 /CUMM (4.8-10.8)
--- NOTE | 2017-12-28 12:02 | Cons- Endocrinology ---
General Information and HPI Consulting Request Date of Consult: 12/28/17 Requested By: medical team Reason for Consult: management of uncontrolled diabetes Source of Information: patient, old records Exam Limitations: no limitations History of Present Illness: Mr. Kilgore is a 62 yo M w/ PMH of HTN, GERD, Diabetes on insulin. He was admitted for urosepsis and dehydration. His glucose level has been in the 300s and 400s. At home, he was on Lantus or Basaglar 45 units in the morning and 40 units at bedtime, Humalog as needed. However, he stated that he doesn't have insurance at this point because he just changed his job. In hospital. he was put on Novolog 70/30 mix 25 units twice a day. He received two doses at this point. His FSGs were 460, 328, 418 and 319. Allergies/Medications Allergies: Coded Allergies: NO KNOWN ALLERGIES (12/08/14) Home Med List: Doxazosin Mesylate 1 MG TAB 1 TAB PO DAILY BP (Reported) INSULIN NPH HUM/REG INSULIN HM (Relion Novolin 70-30 Vial) 10 ML MARGARITO 10 U SC BID DIABETES (Reported) Insulin-Lantus (Lantus Insulin) 100 UNITS/ML MADDY 15 U SC DAILY DIABETES ( Reported) Insulin-Lantus (Lantus Insulin) 100 UNITS/ML MADDY 10 U SC AT BEDTIME DIABETIES (Reported) Lisinopril (Prinivil) 5 MG TAB 1 TAB PO DAILY BP (Reported) Tadalafil (Cialis) 5 MG TABLET 1 TAB PO DAILY PRN ED (Reported) Review of Systems Review of Systems Constitutional: Reports: see HPI, fever. Cardiovascular: Denies: chest pain. Respiratory: Denies: short of breath. GI: Denies: abdominal pain. Genitourinary: Reports: see HPI. Hematologic/Endocrine: Denies: polyuria, polydipsia. 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 Home Services at Home: None Smoking Status: Former Smoker ETOH Use: denies use Exam & Diagnostic Data Last 24 Hrs of Vital Signs/I&O Vital Signs Date Time Temp Pulse Resp B/P B/P Pulse O2 O2 Flow FiO2 Mean Ox Delivery Rate 12/28 0808 79 120/66 12/28 0638 98.1 63 20 120/68 98 Room Air 12/28 0003 98.6 85 20 164/94 96 Room Air 12/27 2336 99.5 86 18 180/87 96 Room Air 12/27 2141 Room Air 12/27 2124 101.2 12/28 2119 101.2 104 20 176/111 97 Room Air Intake & Output 12/28 1600 12/28 0800 12/28 0000 Intake Total 450 0 Output Total 1500 Balance -1050 0 Intake, IV 450 Intake, Oral 0 Output, Urine 1500 Patient 183 lb 183 lb Weight Weight Bed scale Bed scale Measurement Method Physical Exam General Appearance: no apparent distress Neck: normal inspection Respiratory: lungs clear Cardiovascular: regular rate/rhythm Gastrointestinal: soft Extremities: no edema Labs/Parish Results: Laboratory Tests 12/28 12/28 0647 0210 Chemistry Sodium (137 - 145 mmol/L) 134 L Potassium (3.5 - 5.1 mmol/L) 4.6 Chloride (98 - 107 mmol/L) 101 Carbon Dioxide (22 - 30 mmol/L) 23 Anion Gap (5 - 16) 9 BUN (9 - 20 mg/dL) 20 Creatinine (0.7 - 1.2 mg/dL) 1.3 H Estimated GFR (>60 ml/min) 56 L BUN/Creatinine Ratio (7 - 25 %) 15.4 Lactic Acid (0.7 - 2.1 mmol/L) 1.2 Hematology CBC w Diff NO MAN DIFF REQ WBC (4.8 - 10.8 /CUMM) 11.9 H RBC (4.70 - 6.10 /CUMM) 3.64 L Hgb (14.0 - 18.0 G/DL) 11.6 L Hct (42 - 52 %) 34.3 L MCV (80.0 - 94.0 FL) 94.0 MCH (27.0 - 31.0 PG) 32.0 H MCHC (33.0 - 37.0 G/DL) 34.0 RDW (11.5 - 14.5 %) 12.7 Plt Count (130 - 400 /CUMM) 182 MPV (7.4 - 10.4 FL) 10.8 H Gran % (42.2 - 75.2 %) 67.5 Lymphocytes % (20.5 - 51.1 %) 23.5 Monocytes % (1.7 - 9.3 %) 7.3 Eosinophils % (0 - 5 %) 1.2 Basophils % (0.0 - 2.0 %) 0.5 Absolute Granulocytes (1.4 - 6.5 /CUMM) 8.0 H Absolute Lymphocytes (1.2 - 3.4 /CUMM) 2.8 Absolute Monocytes (0.10 - 0.60 /CUMM) 0.9 H Absolute Eosinophils (0.0 - 0.7 /CUMM) 0.1 Absolute Basophils (0.0 - 0.2 /CUMM) 0.1 12/28 12/28 0200 0200 Urines Urine Color (YEL,AMB,STR) STRAW Urine Clarity (CLEAR) CLEAR Urine pH (5.0 - 8.0) 6.5 Ur Specific [place] (1.001 - 1.035) <= 1.005 Urine Protein (NEG,<30 MG/DL) NEG Urine Ketones (NEG) NEG Urine Nitrite (NEG) NEG Urine Bilirubin (NEG) NEG Urine Urobilinogen (0.1 - 1.0 EU/dl) 0.2 Ur Leukocyte Esterase (NEG) NEG Ur Microscopic SEDIMENT EXAMINED Urine RBC (0 - 5 /HPF) RARE Urine WBC (0 - 2 /HPF) RARE Ur Epithelial Cells (NONE,FEW) RARE Urine Hemoglobin (NEG) TRACE-INTACT H Urine Osmolality (300 - 1000 MOSM/KG) 243 L Ur Random Creatinine (mg/dL) 17.5 Ur Random Sodium (30 - 90 mmol/L) 42 Ur Random Potassium (mmol/L) 7.6 Fraction Sodium Excret (<1% %) 2.5 H Urine Glucose (N MG/DL) >=1000 H 12/27 2136 Chemistry Sodium (137 - 145 mmol/L) 125 L Potassium (3.5 - 5.1 mmol/L) 4.8 Chloride (98 - 107 mmol/L) 94 L Carbon Dioxide (22 - 30 mmol/L) 20 L Anion Gap (5 - 16) 10 BUN (9 - 20 mg/dL) 21 H Creatinine (0.7 - 1.2 mg/dL) 1.3 H Estimated GFR (>60 ml/min) 56 L BUN/Creatinine Ratio (7 - 25 %) 16.2 Glucose (65 - 99 mg/dL) 477 H Hemoglobin A1c (4.2 - 5.8 %) Pending Serum Osmolality (285 - 295 MOSM/KG) 292 Lactic Acid (0.7 - 2.1 mmol/L) 1.3 Calcium (8.4 - 10.2 mg/dL) 8.4 Total Bilirubin (0.2 - 1.3 mg/dL) 1.6 H AST (17 - 59 U/L) 69 H ALT (21 - 72 U/L) 62 Alkaline Phosphatase (< 127 U/L) 198 H Total Protein (6.3 - 8.2 g/dL) 6.6 Albumin (3.5 - 5.0 g/dL) 3.3 L Globulin (1.9 - 4.2 gm/dL) 3.3 Albumin/Globulin Ratio (1.1 - 2.2 %) 1.0 L Hematology CBC w Diff NO MAN DIFF REQ WBC (4.8 - 10.8 /CUMM) 11.1 H RBC (4.70 - 6.10 /CUMM) 3.80 L Hgb (14.0 - 18.0 G/DL) 12.1 L Hct (42 - 52 %) 35.7 L MCV (80.0 - 94.0 FL) 93.9 MCH (27.0 - 31.0 PG) 31.9 H MCHC (33.0 - 37.0 G/DL) 34.0 RDW (11.5 - 14.5 %) 12.7 Plt Count (130 - 400 /CUMM) 183 MPV (7.4 - 10.4 FL) 10.2 Gran % (42.2 - 75.2 %) 80.9 H Lymphocytes % (20.5 - 51.1 %) 12.1 L Monocytes % (1.7 - 9.3 %) 6.3 Eosinophils % (0 - 5 %) 0.5 Basophils % (0.0 - 2.0 %) 0.2 Absolute Granulocytes (1.4 - 6.5 /CUMM) 9.0 H Absolute Lymphocytes (1.2 - 3.4 /CUMM) 1.3 Absolute Monocytes (0.10 - 0.60 /CUMM) 0.7 H Absolute Eosinophils (0.0 - 0.7 /CUMM) 0.1 Absolute Basophils (0.0 - 0.2 /CUMM) 0 Assessment/Plan Assessment/Plan 62yo M w/ PMH of HTN, GERD, Diabetes on insulin. He was admitted for urosepsis and dehydration. His glucose level has been in the 300s and 400s. DM management: 1. change the diet to consistent carbohydrates 1 diet; 2. stop Novolog 70/30 mix 25 units twice a day; 3. start Levemir 25 units twice a day; 4. start novolog coverage before meals and Novolog coverage at bedtime; detail see the inpatient DM orders; 5. monitor FSGs. will follow Inpatient Diabetes Orders Before Each Meal: Bolus Insulin: Novolog < 80 mg/dl: no coverage 80-100 mg/dl: 12 units 101-120 mg/dl: 12 units 121-150 mg/dl: 12 units 151-200 mg/dl: 14 units 201-250 mg/dl: 16 units 251-300 mg/dl: 18 units 301-350 mg/dl: 20 units 351-400 mg/dl: 22 units > 400 mg/dl: 24 units Bedtime: Bolus Insulin: Novolog < 80 mg/dl: no coverage 80-100 mg/dl: no coverage 101-120 mg/dl: no coverage 121-150 mg/dl: no coverage 151-200 mg/dl: no coverage 201-250 mg/dl: 2 units 251-300 mg/dl: 3 units 301-350 mg/dl: 4 units 351-400 mg/dl: 6 units > 400 mg/dl: 8 units Consult Acknowledgment - Thank you for your consult request.
[2017-12-28 14:29] VITALS: BP 127/70
--- NOTE | 2017-12-28 17:02 | CT SCAN REPORT ---
EXAMINATION: CT ABDOMEN AND PELVIS WITHOUT CONTRAST CLINICAL INFORMATION: UTI, pyelonephritis. COMPARISON: 11/03/2014 CT scan. TECHNIQUE: Multidetector volumetric imaging was performed from the superior aspect of the liver through the pubic symphysis. Sagittal and coronal reformatted images were obtained on the technologist's workstation. DLP: 389.63 mGy-cm FINDINGS: LUNG BASES: Limited images of lower thorax demonstrate mild increased interstitial markings in the lateral right middle lobe, adjacent to the right minor fissure, slightly more prominent than 2015 CT scan. Noncontrast images of the abdomen and pelvis demonstrate: LIVER, GALLBLADDER, AND BILIARY TREE: The liver is enlarged, measures about 20 cm in maximum CC dimension. The hepatic parenchymal density is normal. No biliary ductal dilatation is present. The gallbladder is contracted. No calcified gallstone is seen. PANCREAS: Unremarkable. SPLEEN: Unremarkable. ADRENAL GLANDS: Unremarkable. KIDNEYS AND URETERS: The right kidney measures about 12.1 cm in length. There is lobulated appearance of the right kidney. The right renal cortex is normal in thickness. No hydronephrosis. There is a 5 mm nonobstructing stone in the lower pole calyx of the right kidney. The left kidney is small, measures about 8.2 cm in length. Cortical thinning of the left kidney noted with some areas of more normal cortical thickness. No hydronephrosis. There is a 3 mm nonobstructing stone in mid to lower left kidney. The ureters are not dilated. No ureter stone. There is no perinephric stranding. The urinary bladder is full and unremarkable in appearance. GASTROINTESTINAL TRACT: The small and large bowel are unremarkable. The appendix is not clearly seen, however there are no inflammatory changes in the expected position of the appendix to suggest acute appendicitis. ABDOMINAL WALL: A 1.5 cm fat-containing umbilical hernia is present. Fat-containing left inguinal hernia is also noted. LYMPH NODES: Normal. VASCULAR: Scattered atherosclerotic calcifications of the abdominal aorta and proximal iliac arteries noted. No aneurysmal dilatation. PELVIC VISCERA: The prostate and seminal vesicles are unremarkable. OSSEOUS STRUCTURES: Facet arthropathy of the lower lumbar spine and vacuum disc phenomenon at L4-L5 and L5-S1 are noted. Posterior disc osteophyte complex at L5-S1 is present. No aggressive bony lesion. IMPRESSION: No acute intra-abdominal findings. Small bilateral nonobstructing renal stones. A small atrophied left kidney. Hepatomegaly.
[2017-12-28 21:11] VITALS: BP 167/90
[2017-12-29 06:00] VITALS: BP 138/60
--- NOTE | 2017-12-29 08:07 | PN- Housestaff ---
See Addendum Jae Oakley 12/29/17 0806: Subjective Follow-up For: Urosepsis Subjective: Patient seen and examined at bedside. He was half sleepy at the time. He denies fever, chills, chest pain, abdominal pain, diarrhea, constipation, burning micturition. Review of Systems Constitutional: Reports: see HPI. Objective Last 24 Hrs of Vital Signs/I&O Vital Signs Date Time Temp Pulse Resp B/P B/P Pulse O2 O2 Flow FiO2 Mean Ox Delivery Rate 12/29 08 70 152/90 12/29 06 98.0 61 17 138/60 98 Room Air 12/28 211 98.6 73 19 167/90 98 Room Air Intake & Output 12/29 1600 12/29 0800 12/29 0000 Intake Total 300 Output Total Balance 300 Intake, Oral 300 Physical Exam General Appearance: Alert, Oriented X3, Cooperative, No Acute Distress Assessment/Plan Assessment: 62-year-old male with past medical history of type 2 diabetes mellitus, hypertension, GERD, diabetes mellitus, MCV presented for evaluation of urinary tract infection status post failed outpatient antibiotic ciprofloxacin therapy. At the time of presentation to emergency department his leg was significant for mild leukocytosis, urinalysis was negative due to recent use of ciprofloxacin antibiotic, high-level more than pulse 1 mg sugar. Problems list: * UTI * Past medical history of hypertension, diabetes mellitus, GERD, HCV Assessment and plan: UTI: Infiltrating UTI with ceftriaxone injection 1000 mg and 100 normal saline IV hydration Acetaminophen Diabetes mellitus: Endocrinology recommendation appreciated Change insulin for 30 mg twice daily to 25 mg twice daily His sugar is controlled Antihypertensive medication: Lisinopril 5 mg daily Doxazosin 1 mg daily His blood sugar is still high 152/90 Full code Problem List: 1. 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 Resting comfortably on acute distress. No issues overnight reported by nursing staff. He is currently afebrile. Hemodynamically stable. He offers no complaints today. Denies nausea vomiting. Denies abdominal pain. Denies dysuria or polyuria. On examination abdomen is soft and nontender with normal bowel sounds. Lungs are clear bilaterally. No peripheral edema. CT abdomen and pelvis done yesterday shows no acute intra-abdominal process. He has small bilateral nonobstructing kidney stones. Has a small atrophic left kidney and hepatomegaly. Assessment: Patient was being treated with ciprofloxacin as an outpatient for UTI secondary to E. coli. Presented with complaints of fever and was started on IV Rocephin. Currently he is afebrile. Urine cultures are negative. CT imaging shows no radiological evidence of pyelonephritis. Leukocytosis was persistent on labs yesterday. Problems: 1. Fever; presumed to be secondary to acute complicated urinary tract infection. 2. Insulin-dependent diabetes mellitus 3. History of hepatitis C virus infection 4. Hypertension. Plan: -Continue IV antibiotic therapy with Rocephin. -Follow-up WBC levels today. -If patient remains afebrile tomorrow white cell count is trending down he may be transitioned to Keflex to complete 10 days of antibiotic treatment 7 from current hospitalization. -Endocrine consultation appreciated. -Anticipate discharge home tomorrow.
[2017-12-29 10:27] LABS: ABSOLUTE BASOPHIL COUNT 0 /CUMM (0.0-0.2); ABSOLUTE EOSINOPHIL COUNT 0.1 /CUMM (0.0-0.7); ABSOLUTE GRANULOCYTE CT 6.4 /CUMM (1.4-6.5); ABSOLUTE MONOCYTE COUNT 0.6 /CUMM (0.10-0.60); BASOPHIL % 0.5 % (0.0-2.0); EOSINOPHIL % 1.3 % (0-5); GRANULOCYTE % 62.6 % (42.2-75.2); HEMATOCRIT 36.8 % (42-52); MEAN CORPUSCULAR HGB 32.1 PG (27.0-31.0); MEAN CORPUSCULAR VOLUME 94.5 FL (80.0-94.0); MEAN PLATELET VOLUME 10.6 FL (7.4-10.4); PLATELET COUNT 192 /CUMM (130-400); RBC DISTRIBUTION WIDTH 12.9 % (11.5-14.5); RED BLOOD CELL CT 3.89 /CUMM (4.70-6.10); WHITE BLOOD CELL COUNT 10.2 /CUMM (4.8-10.8)
--- NOTE | 2017-12-29 10:41 | PN- Diabetes ---
Assessment/Plan Diabetes Assessment: 62yo M w/ PMH of HTN, GERD, Diabetes on insulin. He was admitted for urosepsis and dehydration. His diet was changed to consistent carbohydrates 1 diet; He was put on Levemir 25 units twice a day, novolog coverage before meals and Novolog coverage at bedtime. Before Each Meal: Bolus Insulin: Novolog < 80 mg/dl: no coverage 80-100 mg/dl: 12 units 101-120 mg/dl: 12 units 121-150 mg/dl: 12 units 151-200 mg/dl: 14 units 201-250 mg/dl: 16 units 251-300 mg/dl: 18 units 301-350 mg/dl: 20 units 351-400 mg/dl: 22 units > 400 mg/dl: 24 units Bedtime: Bolus Insulin: Novolog < 80 mg/dl: no coverage 80-100 mg/dl: no coverage 101-120 mg/dl: no coverage 121-150 mg/dl: no coverage 151-200 mg/dl: no coverage 201-250 mg/dl: 2 units 251-300 mg/dl: 3 units 301-350 mg/dl: 4 units 351-400 mg/dl: 6 units > 400 mg/dl: 8 units His FSGs were 319, 358, 188 and 228. Plan: 1. increase Levemir to 30 units twice a day today; 2. continue the current Novolog coverage before meals and Novolog coverage at bedtime; 3. monitor FSGs. will follow. Subjective Subjective: He feels well this morning. Objective Last 24 Hrs of Vital Signs/I&O Vital Signs Date Time Temp Pulse Resp B/P B/P Pulse O2 O2 Flow FiO2 Mean Ox Delivery Rate 12/30 823 70 152/90 12/29 0600 98.0 61 17 138/60 98 Room Air 12/28 2111 98.6 73 19 167/90 98 Room Air 12/28 1429 98.2 67 18 127/70 98 Intake & Output 12/29 1600 12/29 0800 12/29 0000 Intake Total 300 Output Total Balance 300 Intake, Oral 300 Findings Pertinent Lab/Parish Results: Laboratory Tests 12/29 836 Chemistry Sodium Pending Potassium Pending Chloride Pending Carbon Dioxide Pending Anion Gap Pending BUN Pending Creatinine Pending BUN/Creatinine Ratio Pending Hematology CBC w Diff NO MAN DIFF REQ WBC (4.8 - 10.8 /CUMM) 10.2 RBC (4.70 - 6.10 /CUMM) 3.89 L Hgb (14.0 - 18.0 G/DL) 12.5 L Hct (42 - 52 %) 36.8 L MCV (80.0 - 94.0 FL) 94.5 H MCH (27.0 - 31.0 PG) 32.1 H MCHC (33.0 - 37.0 G/DL) 34.0 RDW (11.5 - 14.5 %) 12.9 Plt Count (130 - 400 /CUMM) 192 MPV (7.4 - 10.4 FL) 10.6 H Gran % (42.2 - 75.2 %) 62.6 Lymphocytes % (20.5 - 51.1 %) 29.3 Monocytes % (1.7 - 9.3 %) 6.3 Eosinophils % (0 - 5 %) 1.3 Basophils % (0.0 - 2.0 %) 0.5 Absolute Granulocytes (1.4 - 6.5 /CUMM) 6.4 Absolute Lymphocytes (1.2 - 3.4 /CUMM) 3.0 Absolute Monocytes (0.10 - 0.60 /CUMM) 0.6 Absolute Eosinophils (0.0 - 0.7 /CUMM) 0.1 Absolute Basophils (0.0 - 0.2 /CUMM) 0
[2017-12-29 14:59] VITALS: BP 121/89
[2017-12-29 22:10] VITALS: BP 162/90
[2017-12-30 06:00] VITALS: BP 158/98
[2017-12-30] MEDS ORDERED: KEFLEX500 M1 PO ×2 (07:04→10:21)
--- NOTE | 2017-12-30 07:11 | PN- Housestaff ---
See Addendum Jae Oakley 12/30/17 0711: Subjective Follow-up For: UTI Review of Systems Constitutional: Reports: see HPI. Objective Last 24 Hrs of Vital Signs/I&O Vital Signs Date Time Temp Pulse Resp B/P B/P Pulse O2 O2 Flow FiO2 Mean Ox Delivery Rate 12/30 0853 72 158/98 12/30 0643 98.5 72 20 99 Room Air 12/30 0600 158/98 12/29 2210 98.5 76 18 162/90 96 Room Air Intake & Output 12/30 1600 12/30 0800 12/30 0000 Intake Total 240 360 Output Total Balance 240 360 Intake, Oral 240 360 Physical Exam General Appearance: Alert, Oriented X3, Cooperative, No Acute Distress Cardiovascular: Normal S1, Normal S2 Lungs: Clear to Auscultation, Normal Air Movement Abdomen: Normal Bowel Sounds, Soft, No Tenderness Extremities: No Clubbing, No Cyanosis, No Edema, Normal Pulses, No Tenderness/ Swelling Assessment/Plan Assessment: 62-year-old male with past medical history of type 2 diabetes mellitus, hypertension, GERD, diabetes mellitus, MCV presented for evaluation of urinary tract infection status post failed outpatient antibiotic ciprofloxacin therapy. At the time of presentation to emergency department his leg was significant for mild leukocytosis, urinalysis was negative due to recent use of ciprofloxacin antibiotic, high-level more than pulse 1 mg sugar. Problems list: * UTI * Past medical history of hypertension, diabetes mellitus, GERD, HCV Assessment and plan: UTI: * Urinary tract infection was treated in hospital by ceftriaxone * He was discharged home on Keflex 500 mg twice daily for 7 days Diabetes mellitus: Endocrinology recommendation appreciated Change his insulin from 3000 twice daily to 10 3600 twice daily Lantus twice daily Antihypertensive medication: Lisinopril 5 mg daily Doxazosin 1 mg daily His blood sugar is still high 152/90 Full code Anticipated discharge today Problem List: 1. Dehydration 2. UTI (urinary tract infection) Pain Ratin Pain Location: No pain Pain Goal: Remain pain free Pain Plan: Pain management pathway Tomorrow's Labs & Rationales: NO LABS Denise Schmid 12/30/17 1133: Attending MD Review Statement Attending Statement Attending MD Statement: examined this patient, discuss w/resident/PA/LABOR ECONOMIST, agreed w/resident/PA/LABOR ECONOMIST, discussed with family, reviewed EMR data (avail), discussed with nursing, discussed with case mgmt, reviewed images, amended to note Attending Assessment/Plan: Patient was being treated with ciprofloxacin as an outpatient for UTI secondary to E. coli. Presented with complaints of fever and was started on IV Rocephin. Currently he is afebrile. Urine cultures are negative. CT imaging shows no radiological evidence of pyelonephritis. Leukocytosis resolved. Patient treated inpateint for presumed UTI and afebrile for past 24-48 hrs. Patient can be dsicharge on oral abx with follow up outpatient with Dr Eriberto Hoang PCP.
[2017-12-30 08:22] LABS: ABSOLUTE BASOPHIL COUNT 0 /CUMM (0.0-0.2); ABSOLUTE EOSINOPHIL COUNT 0.1 /CUMM (0.0-0.7); ABSOLUTE GRANULOCYTE CT 5.3 /CUMM (1.4-6.5); ABSOLUTE MONOCYTE COUNT 0.7 /CUMM (0.10-0.60); BASOPHIL % 0.4 % (0.0-2.0); EOSINOPHIL % 1.6 % (0-5); GRANULOCYTE % 57.8 % (42.2-75.2); HEMATOCRIT 36.4 % (42-52); MEAN CORPUSCULAR HGB 32.2 PG (27.0-31.0); MEAN CORPUSCULAR HGB CONC 34.1 G/DL (33.0-37.0); MEAN CORPUSCULAR VOLUME 94.3 FL (80.0-94.0); MEAN PLATELET VOLUME 10.5 FL (7.4-10.4); PLATELET COUNT 197 /CUMM (130-400); RED BLOOD CELL CT 3.86 /CUMM (4.70-6.10); WHITE BLOOD CELL COUNT 9.2 /CUMM (4.8-10.8)
[2017-12-30 08:53] VITALS: BP 158/98
--- NOTE | 2017-12-30 09:57 | Patient Discharge Instructions ---
Discharge Instructions General Discharge Information You were seen/treated for: Urinary tract infection GAURAV Special Instructions: Please F/U with PCP in one week Please repeat kidney function test in one week to check creatinine level In case of any medical attention please contact your [facility] Please increase your water intake Diet Recommended Diet: Diabetic Activity Activity Self Limited: Yes Acute Coronary Syndrome Inclusion Criteria At DC or during hospital stay patient has or had the following: ACS DIAGNOSIS No Discharge Core Measures Meds if any: Prescribed or Continued at Discharge Meds if any: NOT Prescribed or Continued at Discharge Congestive Heart Failure Inclusion Criteria At DC or during hospital stay patient has or had the following: CHF DIAGNOSIS No Discharge Core Measures Meds if any: Prescribed or Continued at Discharge Meds if any: NOT Prescribed or Continued at Discharge Cerebrovascular accident Inclusion Criteria At DC or during hospital stay patient has or had the following: CVA/TIA Diagnosis No Discharge Core Measures Meds if any: Prescribed or Continued at Discharge Meds if any: NOT Prescribed or Continued at Discharge Venous thromboembolism Inclusion Criteria VTE Diagnosis No VTE Type NONE VTE Confirmed by (Test) NONE Discharge Core Measures - Per Current guidelines, there needs to be overlap - treatment for the first 5 days of Warfarin therapy. - If discharged on Warfarin prior to 5 days of - overlap therapy, the patient will need to be - assessed for post discharge needs including - *Post discharge parental anticoagulation - *Warfarin and/or parental anticoagulation education - *Follow up date to check INR post discharge At least 5 days overlap therapy as Inpatient No Meds if any: Prescribed or Continued at Discharge Note: Overlap Therapy is Warfarin and Anticoagulant Meds if any: NOT Prescribed or Continued at Discharge
--- NOTE | 2017-12-30 14:10 | PN- Diabetes ---
Assessment/Plan Diabetes Assessment: 62yo M w/ PMH of HTN, GERD, Diabetes on insulin. He was admitted for urosepsis and dehydration. His diet was changed to consistent carbohydrates 1 diet; He was put on Levemir 30 units twice a day, novolog coverage before meals and Novolog coverage at bedtime. Before Each Meal: Bolus Insulin: Novolog < 80 mg/dl: no coverage 80-100 mg/dl: 12 units 101-120 mg/dl: 12 units 121-150 mg/dl: 12 units 151-200 mg/dl: 14 units 201-250 mg/dl: 16 units 251-300 mg/dl: 18 units 301-350 mg/dl: 20 units 351-400 mg/dl: 22 units > 400 mg/dl: 24 units Bedtime: Bolus Insulin: Novolog < 80 mg/dl: no coverage 80-100 mg/dl: no coverage 101-120 mg/dl: no coverage 121-150 mg/dl: no coverage 151-200 mg/dl: no coverage 201-250 mg/dl: 2 units 251-300 mg/dl: 3 units 301-350 mg/dl: 4 units 351-400 mg/dl: 6 units > 400 mg/dl: 8 units His FSGs were 293, 170 and 288. Plan: 1. increase Levemir to 36 units twice a day; 2. adjust Novolog coverage before meals; Bolus Insulin: Novolog < 80 mg/dl: no coverage 80-100 mg/dl: 14 units 101-120 mg/dl: 14 units 121-150 mg/dl: 14 units 151-200 mg/dl: 16 units 201-250 mg/dl: 18 units 251-300 mg/dl: 20 units 301-350 mg/dl: 22 units 351-400 mg/dl: 24 units > 400 mg/dl: 26 units 3. continue the current Novolog coverage at bedtime; 4. monitor FSGs. will follow. Patient doesn't have health insurance at this point and he has only Humalog at home. Please request social science manager consult. Subjective Subjective: He has no specoal complaints this morning. Objective Last 24 Hrs of Vital Signs/I&O Vital Signs Date Time Temp Pulse Resp B/P B/P Pulse O2 O2 Flow FiO2 Mean Ox Delivery Rate 12/30 0853 72 158/98 12/30 0643 98.5 72 20 99 Room Air 12/30 0600 158/98 12/29 2210 98.5 76 18 162/90 96 Room Air 12/29 1459 98.3 69 18 121/89 98 Room Air Intake & Output 12/30 1600 12/30 0800 12/30 0000 Intake Total 240 360 Output Total Balance 240 360 Intake, Oral 240 360 Findings Pertinent Lab/Parish Results: Laboratory Tests 12/30 0702 Chemistry Sodium (137 - 145 mmol/L) 136 L Potassium (3.5 - 5.1 mmol/L) 4.9 Chloride (98 - 107 mmol/L) 100 Carbon Dioxide (22 - 30 mmol/L) 27 Anion Gap (5 - 16) 9 BUN (9 - 20 mg/dL) 20 Creatinine (0.7 - 1.2 mg/dL) 1.2 Estimated GFR (>60 ml/min) > 60 BUN/Creatinine Ratio (7 - 25 %) 16.7 Hematology CBC w Diff NO MAN DIFF REQ WBC (4.8 - 10.8 /CUMM) 9.2 RBC (4.70 - 6.10 /CUMM) 3.86 L Hgb (14.0 - 18.0 G/DL) 12.4 L Hct (42 - 52 %) 36.4 L MCV (80.0 - 94.0 FL) 94.3 H MCH (27.0 - 31.0 PG) 32.2 H MCHC (33.0 - 37.0 G/DL) 34.1 RDW (11.5 - 14.5 %) 13.0 Plt Count (130 - 400 /CUMM) 197 MPV (7.4 - 10.4 FL) 10.5 H Gran % (42.2 - 75.2 %) 57.8 Lymphocytes % (20.5 - 51.1 %) 32.2 Monocytes % (1.7 - 9.3 %) 8.0 Eosinophils % (0 - 5 %) 1.6 Basophils % (0.0 - 2.0 %) 0.4 Absolute Granulocytes (1.4 - 6.5 /CUMM) 5.3 Absolute Lymphocytes (1.2 - 3.4 /CUMM) 3.0 Absolute Monocytes (0.10 - 0.60 /CUMM) 0.7 H Absolute Eosinophils (0.0 - 0.7 /CUMM) 0.1 Absolute Basophils (0.0 - 0.2 /CUMM) 0
--- NOTE | 2017-12-30 14:42 | Event Note ---
Event Note Event Note: Patient having Hx of uncontrolled blood sugar at Hospital . he was discharged without changing his Lantus insulin dose changed. I called patient home and i spoke with patient with myself. Patient is aware and educated about his insulin . I informed him about new dose of insulin LANTUS. He is educated/informed to take 36unit of insulin BID. He was also educated if he feel palpitaion, sweating apprehension he must check his sugar level and take somthing sweat if sugar level is below 65. I also assured him to monitor sugar daily at home.
[2017-12-30] MEDS ORDERED: LEVEMIR100 UNIT/1 SC (14:43)
[2017-12-30] MEDS ORDERED: LANTUS100 UNIT/1 SC (14:48)
--- NOTE | 2017-12-30 15:06 | Discharge Summary ---
Visit Information Visit Dates Admission Date: 12/27/17 Discharge Date: 12/30/17 Hospital Course Course Attending Physician: Denise Schmid MD Primary Care Physician: Eriberto Hoang MD Hospital Course: 62-year-old male with past medical history of type 2 diabetes mellitus, hypertension, GERD, diabetes mellitus, MCV presented for evaluation of urinary tract infection status post failed outpatient antibiotic ciprofloxacin therapy. At the time of presentation to emergency department his leg was significant for mild leukocytosis, urinalysis was negative due to recent use of ciprofloxacin antibiotic, high-level more than pulse 1 mg sugar. Hospital course: At the time of admission to Hospital vitals and labs are given below: Vitals: 101.2, 104, 177/111, RR 18, CBC: 11.1, Granulocytes 80.9% Urinalysis: Negetive for infection because of recent use of antibiotic Urine C/S is negetive for organism He was treated for the following problem at Hospital. * UTI S/P out patient antibiotic failure * Past medical history of hypertension, diabetes mellitus, GERD, HCV Assessment and plan: UTI s/p out patient antibiotic failure: Patient was treated on ciprofloxacin out patient but he did not respond. He was treated on cefrixone for three days . He improved alot. His fever settled down, He was no more complaining of burning micturation. He was discharge on oral Keflex for 7 days. Diabetes mellitus: Endocrinology recommendation appreciated. Sugar was uncontrolled , his insulin dose was increased. Antihypertensive medication: Lisinopril 5 mg daily Doxazosin 1 mg daily Allergies: Coded Allergies: NO KNOWN ALLERGIES (12/08/14) Disposition Summary Disposition Principal Diagnosis: UTI Additional Diagnosis: HTN DM Discharge Disposition: home or self care Discharge Instructions General Discharge Information Code Status: Full Code Patient's Diet: Diebetic Diet Patient's Activity: regular diet Follow-Up Instructions/Appts: Please contact with your [facility] physicain in one week in case of medical attention please conatct your [facility] physician Medications at Discharge Discharge Medications: Stop taking the following medications: Amoxicillin (Amoxil) 500 MG CAP ORAL THREE TIMES DAILY Days = 10 Sulfamethoxazole/Trimethopri (Bactrim Ds 800 MG-160 MG) 1 TAB TAB ORAL TWICE DAILY Days = 10 Insulin-Lantus (Lantus Insulin) 100 UNITS/ML MADDY SC DAILY Qty = 10 Insulin-Lantus (Lantus Insulin) 100 UNITS/ML MADDY SC AT BEDTIME Qty = 10 Ranitidine (Zantac) 150 MG TAB ORAL DAILY Qty = 60 CYCLOBENZAPRINE HCL (Flexeril) 10 MG TAB ORAL TWICE DAILY Qty = 20 Naproxen (Naproxen) 250 MG TAB ORAL TWICE DAILY Qty = 20 Gabapentin (Neurontin) 300 MG CAP ORAL THREE TIMES DAILY Qty = 90 AMOXICILLIN/POTASSIUM CLAV (Augmentin 875-125 Tablet) 875 MG/125 MG TAB ORAL TWICE DAILY Qty = 20 Diclofenac Potassium (Diclofenac Potassium) 50 MG TABLET ORAL THREE TIMES DAILY as needed for PAIN,fever Qty = 30 Azithromycin (Zithromax) 250 MG TABLET ORAL As Directed Qty = 6 Oseltamivir Phosphate (Tamiflu) 75 MG CAPSULE ORAL TWICE DAILY Qty = 10 Ciprofloxacin HCl (Cipro) 250 MG TABLET ORAL TWICE DAILY Qty = 14 Continue taking these medications: Lisinopril (Prinivil) 5 MG TABLET Doxazosin Mesylate (Doxazosin Mesylate) 1 MG TABLET Comments: Last Taken: 12/30/17 Time: 36439 Insulin NPH Hum/Reg Insulin Hm (Relion Novolin 70-30 Vial) 100 UNIT/ML (70-30) VIAL Comments: NOT TAKEN Tadalafil (Cialis) 5 MG TABLET 1 Tablet ORAL DAILY as needed for ED Comments: NOT GIVEN Start taking the following new medications: Cephalexin (Keflex) 500 MG CAPSULE 1 Capsule ORAL TWICE DAILY Qty = 14 No Refills Instructions: . Comments: NOT GIVEN Insulin-Lantus (Lantus) 100 UNIT/ML VIAL 36 Units SC TWICE DAILY Qty = 30 No Refills Copies To: Viktor RHODES,Eriberto York Attending MD Review Statement Documenting Attending: Denise Schmid MD Other Findings: Patient was being treated with ciprofloxacin as an outpatient for UTI secondary to E. coli. Presented with complaints of fever and was started on IV Rocephin. Currently he is afebrile. Urine cultures are negative. CT imaging shows no radiological evidence of pyelonephritis. Leukocytosis resolved. Patient treated inmeteint for presumed UTI and afebrile for past 24-48 hrs. Patient can be dsicharge on oral abx with follow up outpatient with Dr Eriberto Hoang PCP.
== END 2017-12-30 12:58 | DRG 690 ==
LOC: ERH 21:17 → 2NB 22:30 → ERHI 22:30 → ENRESERV 22:59 → 2NB 23:43
PROVIDERS: Physician Assistant Medical; Preventive Medicine Addiction Medicine; Student in an Organized Health Care Education/Training Program
DX: N39.0 Urinary tract infection, site not specified (principal); E87.1 Hypo-osmolality and hyponatremia; E11.65 Type 2 diabetes mellitus with hyperglycemia; Z79.4 Long term (current) use of insulin; R74.0 Nonspecific elevation of levels of transaminase and lactic acid dehydrogenase [LDH]; I12.9 Hypertensive chronic kidney disease with stage 1 through stage 4 chronic kidney disease, or unspecified chronic kidney disease; N18.2 Chronic kidney disease, stage 2 (mild); E86.0 Dehydration; K21.9 Gastro-esophageal reflux disease without esophagitis; Z87.891 Personal history of nicotine dependence
CPT/HCPCS: 2NSBP; 84133; 84300; 36415; 36592; 71046; 74176; 81001; 82436; 82570; 87040; 87086; 93005; 93010; 96361; 96372; 96374; 99291; J0131; J0696; J1644; J1815; Q2036